=== PATIENT | male | born 1955 | race African-American/Black ===

== ENCOUNTER 2018-12-23 07:15 | Day surgery (SDC) | payer OTHER ==
[~2018-12-23] VITALS: Ht 165.1 cm; Wt 95.0 kg
[2018-12-23] VITALS (15 sets, daily range): BP systolic 107–156; BP diastolic 65–80; PULSE 60–95; RESP 12–20; Ht 165.1 cm; Wt 95.0 kg
[2018-12-23] MEDS ORDERED: METF-849 PO (08:36)
[2018-12-23] MEDS ORDERED: ATOR40TA68 PO (08:36)
[2018-12-23] MEDS ORDERED: HYDR12.58 PO (08:36)
[2018-12-23] MEDS ORDERED: AMLO-147 ORAL (08:36)
[2018-12-23] MEDS ORDERED: ENAL20TA73 PO (08:36)
--- NOTE | 2018-12-23 10:01 | PREAC ---
Date/Time of Note Date/Time of Note DATE: 12/23/18 TIME: 10:00 Anesthesia Eval and Record Evaluation Time Pre-Procedure Interview DATE: 12/23/18 TIME: 10:00 Age 63 Sex male NPO: 8 hrs Preoperative diagnosis ventral, b/l inguinal hernia Planned procedure lap b/l inguinal , ventral hernis repaor with mesh Past Medical History Past Medical History: Includes Cardio: HTN, Dyslipidemia Endo: Diabetes Surgery & Anesthesia Issues No known issue Meds Anticoagulation: No Beta Nneka within 24 hr: No Reason Beta Nneka not given: Pt. not on B-Nneka Reported Medications Amlodipine Besylate* (Amlodipine Besylate*) 10 Mg Tablet, 1 TAB ORAL DAILY 12/23/18 Enalapril Maleate* (Vasotec*) 20 Mg Tablet, 20 MG PO DAILY, TAB 12/23/18 Atorvastatin* (Atorvastatin*) 40 Mg Tablet, 40 MG PO QHS, #30 TAB 12/23/18 Metformin* (Glucophage*) 500 Mg Tab, 500 MG PO WITH BREAKFAST DINNE, #30 TAB 12/23/18 Hydrochlorothiazide* (Hydrochlorothiazide*) 12.5 Mg Tablet, 12.5 MG PO DAILY, #60 TAB 12/23/18 Meds reviewed: Yes Allergies Coded Allergies: No Known Allergy (Unverified , 12/23/18) Allergies Reviewed: Yes Labs/Studies Labs Reviewed: Reviewed by anesthesiologist test: N/A Studies: ECG (sr), CXR (nl) Pre-procedure Exam Last vitals Vital Signs Date Temp Pulse Resp B/P (MAP) Pulse Ox O2 O2 Flow FiO2 Time Delivery Rate 12/23/18 98.2 60 16 139/72 98 Room Air 08:37 (94) Airway: Adequate mouth opening Mallampati: Mallampati I Teeth: Abnormal (partiel denture) Lung: Normal Heart: Normal ASA Physical Status ASA physical status: 2 Emergency: None Planned Anesthetic General/MAC: ETT Nerve block: TAP (bilateral) Planned Pain Management Single shot nerve block, Parenteral pain med Pre-operative Attestations Prior to commencing anesthesia and surgery, the patient was re-evaluated, there was verification of: *The patient's identity *The results of appropriate recent lab work and preoperative vital signs *The above evaluation not changing prior to induction *Anesthetic plan, risk benefits, alternative and complications discussed with patient/family; questions answered; patient/family understands, accepts and wishes to proceed. HIRO CRUZ MD Dec 23, 2018 10:01
[2018-12-23] MEDS ORDERED: CEFAZOLIN 1 GM INJ ONE (10:08)
[2018-12-23] MEDS ORDERED: PROPOFOL 20 ML ONE (10:08)
[2018-12-23] MEDS ORDERED: METOCLOPRAMIDE 10 MG INJ ONE (10:08)
[2018-12-23] MEDS ORDERED: ROPIVACAINE 0.5 % 30 ML VIAL ONE (10:08)
[2018-12-23] MEDS ORDERED: ONDANSETRON 4 MG INJ ONE (10:08)
[2018-12-23] MEDS ORDERED: ROCURONIUM 50 MG INJ ONE ×2 (10:08→11:00)
[2018-12-23] MEDS ORDERED: FENTAnyl 50 MCG/ML VIAL ONE (10:10)
[2018-12-23] MEDS ORDERED: MIDAZOLAM 1 MG/ML 2 ML INJ ONE (10:10)
[2018-12-23] MEDS ORDERED: ONDANSETRON 4 MG INJ IV PRN (10:30)
[2018-12-23] MEDS ORDERED: DIPHENHYDRAMINE 50 MG INJ IV PRN (10:30)
[2018-12-23] MEDS ORDERED: LABETALOL HCL 20MG INJ IV PRN (10:30)
[2018-12-23] MEDS ORDERED: hydrALAzine 20 MG INJ IV PRN (10:30)
[2018-12-23] MEDS ORDERED: MEPERIDINE 25 MG INJ IV PRN (10:30)
[2018-12-23] MEDS ORDERED: FENTAnyl 50 MCG/ML VIAL IV PRN ×3 (10:30)
[2018-12-23] MEDS ORDERED: HYDROmorphONE 1 MG/5 ML IV SYRINGE IV PRN ×3 (10:30)
[2018-12-23] MEDS ORDERED: EPHEDrine 50 MG INJ ONE (11:44)
[2018-12-23] MEDS ORDERED: KETOROLAC 30 MG INJ ONE (12:55)
[2018-12-23] MEDS ORDERED: NEOSTIGMINE 10 MG INJ ONE (13:08)
[2018-12-23] MEDS ORDERED: GLYCOPYRROLATE 0.4 MG INJ ONE (13:09)
--- NOTE | 2018-12-23 14:17 | SIPON ---
Date/Time of Note Date/Time of Note DATE: 12/23/18 TIME: 14:16 Operative Report Preoperative Diagnosis bilateral ing hernia ventral hernia Postoperative Diagnosis right ing hernia ventral hernia Operation/Procedure Performed lap ventral hernia repair w mesh lap r ing hernia repair w mesh Surgeon see signature line assistant coach none Anesthesia: general Estimated blood loss: 0 - 10 ml's Transfusion Required none Specimen omentum Grafts/Implants none Complications none MADELEINE STARKS Dec 23, 2018 14:17
[2018-12-23] MEDS ORDERED: HYDROCODONE/APAP (5/325) TAB PO ONE (15:30)
--- NOTE | 2018-12-23 15:39 | PAC ---
Date/Time of Note Date/Time of Note DATE: 12/23/18 TIME: 15:39 Post-Anesthesia Notes Post-Anesthesia Note Last documented vital signs Vital Signs Date Temp Pulse Resp B/P (MAP) Pulse Ox O2 O2 Flow FiO2 Time Delivery Rate 12/23/18 98.1 80 17 107/65 95 Nasal 2.0 14:21 (79) Cannula 12/23/18 98.1 13:31 Activity: WNL Respiratory function: WNL Cardiovascular function: WNL Mental status: Baseline Pain reasonably controlled: Yes Hydration appropriate: Yes Nausea/Vomiting absent: No HIRO CRUZ MD Dec 23, 2018 15:39
--- NOTE | 2018-12-23 17:04 | OPR ---
Date/Time of Note Date/Time of Note DATE: 12/23/18 TIME: 17:03 Operative Report Procedure Date: Dec 23, 2018 Preoperative Diagnosis Incarcerated ventral hernia Bilateral inguinal hernias nonincarcerated Postoperative Diagnosis Incarcerated ventral hernia Right inguinal hernia Normal left inguinal region Operation/Procedure Performed Laparoscopic repair of incarcerated right inguinal hernia with mesh Laparoscopic ventral hernia repair with mesh Excision of excess skin at the umbilicus Omentectomy Excision of spermatic cord lesion (Lipoma of the cord), R Surgeon see signature line Virtual Assistant None Anesthesia Type: general Estimated Blood Loss: 10 - 50 ml's Transfusion none Specimen omentum lipoma of the cord hernia sac Grafts/Implants none Complications none Pt Condition Post Procedure: stable Disposition: PACU Indications This is a 63-year-old gentleman with an incarcerated ventral hernia that has been causing significant pain and discomfort and increasing in size. He also was diagnosed with bilateral inguinal hernias clinically based on examination. The hernias especially on the right was causing pain and discomfort with movement and physical activity as was the ventral hernia which had been significantly increasing in size over the last several months. In order to pr ovide symptomatic relief the patient is being taken for operative repair. Procedure Description Patient was laid supine on the operating room table and his abdomen and groin and scrotum were prepped and draped in a sterile manner. Antibiotics were administered. Timeout was conducted. A 5 mm incision was made at the left upper quadrant at Willis's point after which the Veress needle was inserted until 3 clicks were heard in the saline test was conducted and it was reassuring. The abdomen was insufflated to 15 mmHg carbon dioxide. Under direct visualization using the Optiview trocar the peritoneal cavity was entered. The area of entry was examined and it was confirmed that there was no injury upon entry. Under direct visualization 2 additional ports were placed in the left lower quadrant. The patient's fascia was noted to have a defect through which a significant amount of omentum was protruding. Upon more careful examination it appeared to be 2 defects adjacent to each other with a slit of fascia about 3-4 mm them. There was a very large amount of omentum in both defects and practically the patient's entire omentum containing a significant amount of fat was balled up inside it. Using blunt retraction combined with the LigaSure to coagulate any vascular adhesions the hernia contents were reduced after spending 30 minutes bringing the omentum out of the hernia sacs. Once this was done the hernia sac was excised circumferentially around both defects which were each about 1-2 cm in size. Once this was completed I turned my attention to the right inguinal area where the patient was noted to have a very large hernia defect with no contents going into the defect. On the left side with the patient and I had thought on exam he had a hernia the area appeared completely intact and photodocumentation was obtained. A fold of peritoneum was created in order to create a flap by grabbing the peritoneum and then using a LigaSure to incise it from the area of the anterior superior iliac spine to the pubic tubercle medially. Once the peritoneal flap was created the median umbilical ligament was parietalized and the vas deferens, pampiniform plexus, spermatic artery as well as the hernia sac were all identified. The hernia sac was dissected off of the adjacent gonadal vessels and spermatic cord structures and reduced into the peritoneal cavity. When this was done a lipoma that was affixed to the hernia sac and the gonadal vessels was bluntly dissected off of the hernia sac and the spermatic cord and passed off the field. Afterwards a Prolene mesh 15 cm in size, macro porous, was inserted through 1 of the 5 mm ports and placed into the area where the internal ring had been dissected free. The mesh was tacked to the pubic tubercle medially and to the area of the anterior superior iliac spine against the fascia laterally. The mesh was splayed out so that it provided good coverage of the internal ring where the patient had the hernia defect. After this was done the peritoneal flap was reapproximated with the aid of tacks. I then turned my attention to the ventral hernia. A 1.5 cm incision was made at the umbilicus where the patient had a lot of excessive skin. A 12 mm port was then inserted through the skin into the peritoneal cavity and through this port the ventral light echo to Prolene mesh was inserted. The lipoma of the cord as well as the omental resection were placed into an Endo Catch bag and retrieved through the umbilical port. The affixing stitch of the Ventralight mesh was brought out of the skin defect and thereafter the secure strap Prolene tacker was used to approximate a 15 cm diameter oval mesh to the ventral abdominal wall circumferentially placing tacks 1 cm apart two rows. The hernia sac is contained very large segments of omentum and 1 of the segments had become detached and therefore an omentectomy was done by using a LigaSure to excise it and ensuring hemostasis along the way. Once this was done the fixation suture was cut and thereafter the fixation device on the mesh was grasped and brought out of the 5 mm port. The area of the hernia repair was inspected and it was confirmed that it was hemostatic and there was good coverage of all defects creating at least 5 cm overlap and coverage circumferentially both of the area of the inguinal hernia and the ventral hernia. The ports were then removed under visualization and the abdomen was desufflated. All instrument sponge and needle counts were correct at the end of the procedure. There were no complications. The patient was disposition to the recovery suite in stable condition. MADELEINE STARKS Dec 23, 2018 17:04
== END 2018-12-23 16:00 | disposition home or self-care (01) ==
LOC: SDS 07:15 → UNDOADMIN 07:15 → REC 07:15 → EDSTATUS 08:00 → REC 11:02 → SDS 16:00 → UNDODISIN 16:45 → SDS 16:45
PROVIDERS: ATTEND Surgery Surgical Critical Care
DX: K43.6 Other and unspecified ventral hernia with obstruction, without gangrene (principal); K40.20 Bilateral inguinal hernia, without obstruction or gangrene, not specified as recurrent; D17.6 Benign lipomatous neoplasm of spermatic cord; L98.7 Excessive and redundant skin and subcutaneous tissue; I10 Essential (primary) hypertension; E78.5 Hyperlipidemia, unspecified; E11.9 Type 2 diabetes mellitus without complications; Z79.84 Long term (current) use of oral hypoglycemic drugs
CPT/HCPCS: 49650; 82962; 88304; J0690; J1170; J1885; J2175; J2250; J2405; J2710; J2765; J2795; J3010; Z7512; Z7610